=== PATIENT | female | born 1975 | race Caucasian/White ===

== ENCOUNTER 2024-11-20 21:40 | Observation (INO) ==
[2024-11-20 21:54] LABS: BASOPHILS % (AUTO) 0.5 %; EOSINOPHILS # (AUTO) 0.2 10^3/uL (0.0-0.7); EOSINOPHILS % (AUTO) 2.7 %; HCT - HEMATOCRIT 39.8 % (37.0-47.0); LYMPHOCYTES # (AUTO) 2.8 10^3/uL (1.5-3.5); LYMPHOCYTES % (AUTO) 38.8 %; MEAN CORPUSCULAR HEMOGLOBIN 34.2 pg (27.0-31.0); MEAN CORPUSCULAR HGB CONC 32.7 g/dL (32.0-36.0); MEAN CORPUSCULAR VOLUME 104.7 fL (81.0-99.0); MEAN PLATELET VOLUME 9.1 fL (7.9-10.8); MONOCYTES # (AUTO) 0.5 10^3/uL (0.0-1.0); MONOCYTES % (AUTO) 7.4 %; NEUTROPHILS # (AUTO) 3.7 10^3/uL (1.5-6.6); NEUTROPHILS % (AUTO) 50.3 %; PLT - PLATELET COUNT 275 10^3/uL (130-450); RED CELL DISTRIBUTION WIDTH 15.3 % (12.0-15.0); WHITE BLOOD COUNT 7.3 x10^3/uL (4.8-10.8)
[2024-11-20] MEDS ORDERED: ROCURONIUM 50 MG/5 ML VIAL ONE (21:58)
[2024-11-20] MEDS: ROCURONIUM 50 MG/5 ML VIAL IVP STA (22:00)
[2024-11-20 22:09] LABS: ACETAMINOPHEN 29.8 ug/mL; ALBUMIN 4.6 g/dL (3.2-5.5); ALBUMIN/GLOBULIN RATIO 1.7 (1.0-2.2); ALKALINE PHOSPHATASE 76 IU/L (42-121); ALT ALANINE AMINOTRANSFERASE 25 IU/L (10-60); AST ASPARTATE AMINOTRANSFERASE 34 IU/L (10-42); BILIRUBIN,TOTAL 0.3 mg/dL (0.2-1.0); BUN - BLOOD UREA NITROGEN 14 mg/dL (6-20); CALCIUM 9.5 mg/dL (8.5-10.3); CARBON DIOXIDE - CO2 23 mmol/L (21-32); CHLORIDE 104 mmol/L (101-111); CK- CREATINE KINASE 590 IU/L (30-223); CREATININE 0.7 mg/dL (0.6-1.3); ETOH - ETHANOL 353.1 mg/dL; GFR - MDRD 89 (>89); GLUCOSE 104 mg/dL (74-104); LIPASE 41 U/L (11-82); MAGNESIUM 2.1 mg/dL (1.7-2.3); POTASSIUM 3.7 mmol/L (3.5-4.5); SODIUM 140 mmol/L (135-145); TOTAL PROTEIN 7.3 g/dL (6.4-8.9)
--- NOTE | 2024-11-20 22:10 | ED Physician Documentation ---
History of Present Illness Stated complaint Stated Complaint: SI/OD Chief complaint Chief Complaint: Resp History obtained from History obtained from: EMS Additonal information Additional information: Patient is a 49-year-old female brought in by EMS. Unable to give any history. Reportedly she drank at least a box of wine if not more today and also took between 18 and 20 tablets of Tylenol PM. Reported ingestion was approximately 8:30 PM. Patient was talking when picked up by EMS but has now become unresponsive and hypoxic [place] Coma Scale Assess Eye opening: None Verbal response: Incomprehensible Motor response: Withdraws to Pain Total score: 7 Review of Systems Status of ROS: unobtainable due to medical condition Meds/Allgy Allergies Allergies Allergy/AdvReac Type Severity Reaction Status Date / Time Unable to Assess Allergy Verified 11/20/24 21:57 PFSH Active Problems All Active Problems (Updated 11/20/24 @ 22:53 by Paulo Rosa MD) Polysubstance overdose (Acute) Suicide attempt (Acute) Respiratory failure (Acute) Alcohol intoxication (Acute) Social History Social History Do you feel safe in your home environment?: Yes (unobtainable) Suffered physical, verbal, emotional, or financial abuse?: No (uobtainable) Exam Exam Vital Signs: Vital Signs x48h Temp Pulse Resp BP Pulse Ox 11/20/24 21:47 35.6 C L 104 H 6 L 91/63 74 L Constitutional Drowsy, minimally arousable to sternal rub HENMT normocephalic, head/scalp atraumatic and oropharynx normal Eyes Pinpoint pupils bilaterally Neck/C-Spine trachea midline Respiratory breath sounds equal bilaterally Decreased respiratory effort Cardiovascular normal heart rate noted and regular rhythm noted Gastrointestinal abdomen soft to palpation, nontender to palpation and nondistended Extremities normal to inspection and no deformity Neurology GCS calculation - Eye opening: None Verbal response: Incomprehensible Motor response: Withdraws to Pain [place] Coma Scale total score: 7 Skin skin color normal Results Vitals Vitals: Vital Signs - 24 hr 11/20/24 21:47 Temperature 35.6 C L Temperature Source Temporal Artery Scan Pulse Rate 104 H Respiratory Rate 6 L Blood Pressure 91/63 O2 Saturation 74 L O2 Source Room air Pain Intensity 0 Oxygen O2 Source Room air EKG (time done) 2148: EKG releavant findings:: EKG personally interpreted by author of this note. Relevant findings are: Rate: Other (96 sinus rhythm) Labs Labs: Laboratory Tests 11/20/24 21:49 WBC 7.3 RBC 3.80 L Hgb 13.0 Hct 39.8 MCV 104.7 H MCH 34.2 H MCHC 32.7 RDW 15.3 H Plt Count 275 MPV 9.1 Neut # (Auto) 3.7 Lymph # (Auto) 2.8 Crockett # (Auto) 0.5 Eos # (Auto) 0.2 Baso # (Auto) 0.0 Absolute Nucleated RBC 0.00 Nucleated RBC % 0.0 Sodium 140 Potassium 3.7 Chloride 104 Carbon Dioxide 23 Anion Gap 13.0 BUN 14 Creatinine 0.7 Estimated GFR (MDRD) 89 Glucose 104 Calcium 9.5 Magnesium 2.1 Total Bilirubin 0.3 AST 34 ALT 25 Alkaline Phosphatase 76 Total Creatine Kinase 590 H Total Protein 7.3 Albumin 4.6 Globulin 2.7 Albumin/Globulin Ratio 1.7 Lipase 41 TSH 1.04 Salicylates < 1.5 Acetaminophen 29.8 Ethyl Alcohol 353.1 Procedures Intubation - Major Provider: Emergency physician Medications: Rocuronium Blade: Glidescope Tube: Size-enter number (7.5), Cuffed and Marked at lips-enter cm (24) Route: Oral Confirmation: Direct visualization, Bilateral breath sounds, End tidal CO2, Pulse ox and Chest xray Complications: No compications (Endotracheal tube pull back 2 cm) PD Medical Decision Making ED course Complexity details: reviewed results, re-evaluated patient and considered differential ED course: 49-year-old female brought in by EMS after an intentional overdose on Tylenol PM and additional Benadryl. She became drowsy and unresponsive in the emergency department. Also drank boxed wine tonight. Shortly after arrival she was intubated. IV fluids given. NG tube placed, Kumar catheter placed. No ICU beds available here currently. Patient was signed out to Dr. Delgado at time of shift change, will look for an ICU bed versus allowing her to metabolize and plan on extubation in the morning. See her note for final disposition. This document was made in part using voice recognition software. While efforts are made to proofread this document, sound alike and grammatical errors may occur. Critical Care Critical Care Provided: Yes Time(min): 45 Time Includes: Direct patient care, Review records, Reassess patient, Document care and See progress note Data interpretation: See progress note Procedures included in critical care time: See progress note Procedures excluded from critical care time: Intubation and See progress note Discharge Plan Discharge Clinical Impression: Suicide attempt Alcohol intoxication Qualifiers: Complication of substance-induced condition: uncomplicated Qualified Code(s): F10.920 - Alcohol use, unspecified with intoxication, uncomplicated Respiratory failure Qualifiers: Chronicity: acute Respiratory failure complication: unspecified whether with hypoxia or hypercapnia Qualified Code(s): J96.00 - Acute respiratory failure, unspecified whether with hypoxia or hypercapnia Polysubstance overdose Qualifiers: Encounter type: initial encounter Injury intent: intentional self-harm Qualified Code(s): T50.902A - Poisoning by unspecified drugs, medicaments and biological substances, intentional self-harm, initial encounter Print Language: [place] Citizen Stand Alone Forms: PCP List
[2024-11-20 22:12] LABS: SALICYLATE < 1.5 mg/dL
[2024-11-20 22:22] LABS: THYROID STIMULATING HORMONE 1.04 uIU/mL (0.34-5.60)
[2024-11-20] MEDS: SODIUM CHLORIDE 0.9% 1,000 ML IV STA ×2 (22:43→22:48)
[2024-11-20] MEDS: PROPOFOL 1000 MG/100 ML 1,000 MG/100 ML BOTTLE IV STA (22:44)
[2024-11-20 23:10] LABS: BILIRUBIN,URINE NEGATIVE (NEGATIVE); GLUCOSE, URINE (UA) NEGATIVE (NEGATIVE); KETONES,URINE (UA) NEGATIVE (NEGATIVE); LEUKOCYTE ESTERASE, URINE NEGATIVE (NEGATIVE); NITRITE,URINE NEGATIVE (NEGATIVE); OCCULT BLOOD,URINE NEGATIVE (NEGATIVE); PROTEIN,URINE NEGATIVE (NEGATIVE); UROBILINOGEN,URINE 0.2 (NORMAL) E.U./dL (NORMAL)
[2024-11-20 23:14] LABS: CLARITY,URINE CLEAR (CLEAR)
[2024-11-20 23:37] LABS: AMPHETAMINE SCREEN,URINE NEGATIVE (NEGATIVE); BARBITURATE SCREEN,UR NEGATIVE (NEGATIVE); BENZODIAZEPINES SCREEN, URINE NEGATIVE (NEGATIVE); BUPRENORPHINE SCREEN, URINE NEGATIVE (NEGATIVE); COCAINE SCREEN URINE NEGATIVE (NEGATIVE); METHADONE SCREEN, URINE NEGATIVE (NEGATIVE); METHAMPHETAMINES SCREEN, URINE NEGATIVE (NEGATIVE); OPIATE SCREEN, URINE NEGATIVE (NEGATIVE); OXYCODONE SCREEN, URINE NEGATIVE (NEGATIVE); THC CANNABINOID SCREEN, URINE NEGATIVE (NEGATIVE); TRICYCLIC ANTIDEPRESSANT,URINE NEGATIVE (NEGATIVE)
[2024-11-20] MEDS: fentaNYL 2,500 MCG in SODIUM CHLORIDE 0.9% 200 ML IV STA (23:40)
--- NOTE | 2024-11-20 23:53 | XRAY Report ---
PROCEDURE: XR Chest 1V INDICATIONS: post intubation TECHNIQUE: One view of the chest was acquired. COMPARISON: None. FINDINGS: Surgical changes and devices: Endotracheal tube and nasogastric tubes are in good position. There are several overlying monitoring wires. Surgical clips present in the left upper quadrant of the abdomen. Lungs and pleura: Strandy parenchymal opacity in the left lung base. No significant effusion or pneumothorax. Mediastinum: Mediastinal contours appear normal. Heart size is normal. Bones and chest wall: No suspicious bony lesions. Overlying soft tissues appear unremarkable. IMPRESSION: Adequate placement of support tubes. Strandy left lung base opacity, probably atelectasis, cannot exclude aspiration. Reviewed by: Alvina Miller MD on 11/20/2024 11:51 PM PDT Approved by: Alvina Miller MD on 11/20/2024 11:51 PM PDT Station ID: [id number]
[2024-11-21 01:09] LABS: ABG PH 7.41 (7.35-7.45)
[2024-11-21 01:10] LABS: ABG PCO2 31 mmHg (34-45)
[2024-11-21 01:11] LABS: ABG BASE EXCESS -5.4 mmol/L (-2.0-3.0); ABG HCO3 19.6 mmol/L (22.0-26.0); ABG MODE OF VENTILATION ASSIST/CONTROL; ABG OXYGEN SATURATION 100 % (95-98); ABG PO2 496 mmHg (83-108); ABG RESPIRATORY RATE 4 b/min; ABG TCO2 20.5 mmol/L (21.0-29.0); ALLEN TEST POSITIVE
--- NOTE | 2024-11-21 02:44 | ED Physician Documentation ---
ED Addendum Addendum Addendum: Patient endorsed to me at 11pm shift change. currently intubated on versed/fentanyl for sedation. Her 4 hour tylenol level was therapeutic as was 8 hour tylenol. no icu beds overnight but one will open up in am. Plan to endorse to incoming daytime ED MD at 7am shift change. Discharge Plan Discharge Clinical Impression: Suicide attempt Alcohol intoxication Qualifiers: Complication of substance-induced condition: uncomplicated Qualified Code(s): F10.920 - Alcohol use, unspecified with intoxication, uncomplicated Respiratory failure Qualifiers: Chronicity: acute Respiratory failure complication: unspecified whether with hypoxia or hypercapnia Qualified Code(s): J96.00 - Acute respiratory failure, unspecified whether with hypoxia or hypercapnia Polysubstance overdose Qualifiers: Encounter type: initial encounter Injury intent: intentional self-harm Qualified Code(s): T50.902A - Poisoning by unspecified drugs, medicaments and biological substances, intentional self-harm, initial encounter Print Language: Somali Stand Alone Forms: PCP List
[2024-11-21] MEDS: VECURONIUM 10 MG VIAL IVP STA (02:49)
[2024-11-21] MEDS ORDERED: PROPOFOL 1000 MG/100 ML 1,000 MG/100 ML BOTTLE IV ONE (04:36)
--- NOTE | 2024-11-21 07:18 | ED Physician Documentation ---
ED Addendum Addendum Addendum: She had been holding in the emergency department as ICU staffing precluded her from being admitted overnight. It was passed down to me that an ICU bed would open up at 7 AM and I spoke with Dr. Regan for admission at 7:18 AM. Discharge Plan Discharge Patient Disposition: [facility] DC/Xfer Condition: Critical Clinical Impression: Suicide attempt Alcohol intoxication Qualifiers: Complication of substance-induced condition: uncomplicated Qualified Code(s): F10.920 - Alcohol use, unspecified with intoxication, uncomplicated Respiratory failure Qualifiers: Chronicity: acute Respiratory failure complication: unspecified whether with hypoxia or hypercapnia Qualified Code(s): J96.00 - Acute respiratory failure, unspecified whether with hypoxia or hypercapnia Polysubstance overdose Qualifiers: Encounter type: initial encounter Injury intent: intentional self-harm Qualified Code(s): T50.902A - Poisoning by unspecified drugs, medicaments and biological substances, intentional self-harm, initial encounter Interventions: ED Admission Assessment Last Done: 11/21/24 08:06
[2024-11-21] MEDS ORDERED: ALBUTEROL NEB 2.5 MG/3 ML INH PRN (07:50)
[2024-11-21] MEDS ORDERED: SODIUM CHLORIDE FLUSH 0.9% 10 ML SYRINGE IVP PRN (07:50)
[2024-11-21] MEDS ORDERED: ONDANSETRON 4 MG/2 ML VIAL IVP PRN (07:50)
--- NOTE | 2024-11-21 08:05 | HISTORY & PHYSICAL EXAMINATION ---
Chief Complaint Chief Complaint Chief Complaint: Patient intubated on arrival History of Present Illness Admitted From Admitted From:: Emergency department History Obtained From Records Reviewed: ED History obtained from: Dr Escobar, Chart Review Exam Limitations: Pt intubated, sedated History of Present Illness HPI Comment/Other: Patient is a 49-year-old female who was brought to the ED due to lack of responsiveness, intubated in the field. She had reportedly drank a box of wine and taken An estimated 18 to 20 tablets of Tylenol PM. This was an apparent suicide attempt. History is provided by chart review and ED attending as patient is currently intubated and unable to communicate. Per Dr. Suazo in the ED, poison control was contacted by previous ED attendings and they did not recommend acetylcysteine given that the patient had normal labs. Remainder of ED workup was relatively unremarkable. ICU admission is requested for further management of respiratory failure and subsequent treatment for depression with suicide attempt. Meds/Allgy Allergies Allergies Allergy/AdvReac Type Severity Reaction Status Date / Time Unable to Assess Allergy Verified 11/20/24 21:57 PFSH Active Problems All Active Problems (Updated 11/20/24 @ 22:53 by Paulo Rosa MD) Polysubstance overdose (Acute) Suicide attempt (Acute) Respiratory failure (Acute) Alcohol intoxication (Acute) Social History Social History Smoking Status: Unknown if ever smoked Relationship: Child Do you feel safe in your home environment?: Yes (unobtainable) Suffered physical, verbal, emotional, or financial abuse?: No (uobtainable) POLST Patient has POLST: No Review of Systems Status of ROS: unobtainable due to endotracheal tube Exam Exam Vital Signs: Vital Signs x48h Temp Pulse Resp BP Pulse Ox 11/21/24 07:30 36.5 C 77 14 119/85 97 11/21/24 07:00 36.4 C L 79 14 129/88 99 11/21/24 06:30 36.4 C L 84 14 138/88 H 98 11/21/24 06:23 79 11/21/24 06:00 36.5 C 79 14 108/75 95 11/21/24 05:30 36.5 C 77 14 108/75 95 11/21/24 05:00 36.6 C 79 14 126/90 96 11/21/24 04:45 80 11/21/24 04:30 36.2 C L 85 14 92/68 95 11/21/24 04:00 35.8 C L 72 14 89/64 L 95 11/21/24 03:30 35.6 C L 72 14 85/61 L 95 11/21/24 03:06 35.6 C L 73 14 84/60 L 95 11/21/24 02:36 35 C L 70 14 88/63 L 96 11/21/24 02:30 75 11/21/24 02:00 35 C L 69 14 91/66 96 11/21/24 01:54 35.0 C L 74 14 91/66 98 11/21/24 01:43 35 C L 76 14 133/89 H 98 11/21/24 01:29 35.0 C L 94 20 126/89 95 11/21/24 01:22 67 14 83/57 L 97 11/21/24 01:22 70 11/21/24 01:18 67 14 79/57 L 96 11/21/24 01:16 67 14 78/53 L 96 11/21/24 01:14 67 14 79/53 L 96 11/21/24 01:13 35.0 C L 67 14 78/53 L 96 11/21/24 01:12 35.0 C L 67 14 79/56 L 96 11/21/24 01:08 35.0 C L 68 14 81/55 L 96 11/21/24 01:01 35.0 C L 69 14 84/58 L 96 11/21/24 01:00 35.0 C L 70 14 80/56 L 96 11/21/24 00:45 34.9 C L 69 14 96 11/21/24 00:30 34.8 C L 70 14 98 11/21/24 00:29 34.8 C L 70 14 92/66 98 11/21/24 00:15 34.8 C L 72 14 100 11/21/24 00:00 83 14 100 Constitutional Drowsy, minimally arousable to sternal rub HENMT normocephalic, head/scalp atraumatic and oropharynx normal Eyes Pinpoint pupils bilaterally Neck/C-Spine trachea midline Respiratory breath sounds equal bilaterally Decreased respiratory effort Cardiovascular normal heart rate noted and regular rhythm noted Gastrointestinal abdomen soft to palpation, nontender to palpation and nondistended Extremities normal to inspection and no deformity Neurology GCS calculation - Eye opening: None Verbal response: Incomprehensible Motor response: Withdraws to Pain [place] Coma Scale total score: 7 Skin skin color normal Conclusion/Plan Problem List (1) Suicide attempt: (2) Respiratory failure: Qualifiers: Chronicity: acute Respiratory failure complication: unspecified whether with hypoxia or hypercapnia Qualified Code(s): J96.00 - Acute respiratory failure, unspecified whether with hypoxia or hypercapnia (3) Alcohol intoxication: Qualifiers: Complication of substance-induced condition: uncomplicated Qualified Code(s): F10.920 - Alcohol use, unspecified with intoxication, uncomplicated (4) Polysubstance overdose: Qualifiers: Encounter type: initial encounter Injury intent: intentional self-harm Qualified Code(s): T50.902A - Poisoning by unspecified drugs, medicaments and biological substances, intentional self-harm, initial encounter Plan # Alcohol intoxication # Suicide attempt with Tylenol overdose #Polysubstance O/D #Acute respiratory failure with hypoxia * Patient arrived from the field intubated after she was initially awake but not verbally communicative in the field * Labs in the ER are reassuring * Patient doing well on the vent, sedated with propofol * Vital stable * Poison control does not recommend acetylcysteine * Place patient in ICU * Wean vent as able * Once patient is awake and communicative, will perform suicide assessment with social work and likely will require psych consult * Monitor for w/d sx when pt awakens, though not likely to w/d soon d/t recent etoh ingestion * Continue ICU care Lab Results 11/20/24 21:49 11/20/24 21:49 Core Measures Anticipated LOS I expect patient to be DC'd or transferred within 96 hours.: Yes
[2024-11-21] MEDS: SODIUM CHLORIDE 0.9% 1,000 ML IV SCH (08:38)
[2024-11-21] MEDS: FAMOTIDINE 20 MG/2 ML VIAL IVP SCH (08:39)
[2024-11-21] MEDS: ENOXAPARIN 40 MG/0.4 ML SYRINGE SUBQ SCH (08:39)
[2024-11-21] MEDS: SODIUM CHLORIDE FLUSH 0.9% 10 ML SYRINGE IVP SCH (11:25)
[2024-11-21] MEDS: BENZOCAINE/MENTHOL LOZENGE MM PRN (12:33)
--- NOTE | 2024-11-21 13:49 | PHARMACY PROGRESS NOTE ---
Best Possible Medication History Admit Date and Time: 11/21/24 143511 Home Medications Medication Instructions Recorded Confirmed Type escitalopram oxalate 20 mg tablet 20 mg PO QAM 5 11/21/24 History estradiol 1 mg/gram (0.1 %) 1 packet topical QPM 11/2111/21/24 History transdermal gel packet lisinopril 30 mg tablet 30 mg PO QAM 11/21/24 History multivitamin 1 tab PO DAILY 11/21/2411/09 History phentermine 37.5 mg tablet 37.5 mg PO QAM 11/21/24 History progesterone micronized 100 mg 100 mg PO QPM 11/21/24 11/21/24 History capsule Processed by: Pharmacy (pharmacy studentDorina) Medications reviewed in ED?: No Medication History completed: Yes Patient Interview: Completed (Patient reports she has not been taking her medications for months due to cost) Secondary Source(s): Insurance records [facility] Statement: As the person ultimately responsible for medication therapy, providers are able to order a medication from an existing home medication list in [facility] via the "Reconcile Routine" prior to Confirmation of that medication by ground support equipment fitter. Such practice is discouraged except when the physician, in their clinical judgment, deems that a medical need exists for a medication without regard to previous use.
[2024-11-21] MEDS ORDERED: LORazepam 2 MG/ML VIAL IVP PRN (16:53)
[2024-11-21] MEDS ORDERED: diazePAM INJ 5 MG/ML SYRINGE IVP PRN (16:53)
[2024-11-21 17:30] LABS: ALBUMIN 3.9 g/dL (3.2-5.5); ALBUMIN/GLOBULIN RATIO 1.8 (1.0-2.2); BILIRUBIN,TOTAL 0.5 mg/dL (0.2-1.0); CALCIUM 8.1 mg/dL (8.5-10.3); CREATININE 0.8 mg/dL (0.6-1.3); POTASSIUM 4.2 mmol/L (3.5-4.5); TOTAL PROTEIN 6.1 g/dL (6.4-8.9)
[2024-11-21] MEDS: diazePAM 5 MG TABLET PO PRN (17:36)
[2024-11-21] MEDS: ACETAMINOPHEN 325 MG TABLET PO PRN (17:57)
[2024-11-21] MEDS: lisinopriL 20 MG TABLET PO SCH (18:05)
[2024-11-21] MEDS: PROPOFOL 1000 MG/100 ML 1,000 MG/100 ML BOTTLE IV SCH (20:53)
[2024-11-22 04:34] LABS: BASOPHILS % (AUTO) 0.4 %; EOSINOPHILS # (AUTO) 0.3 10^3/uL (0.0-0.7); EOSINOPHILS % (AUTO) 4.8 %; HCT - HEMATOCRIT 36.2 % (37.0-47.0); HGB - HEMOGLOBIN 11.9 g/dL (12.0-16.0); LYMPHOCYTES # (AUTO) 1.9 10^3/uL (1.5-3.5); LYMPHOCYTES % (AUTO) 29.1 %; MEAN CORPUSCULAR HEMOGLOBIN 34.3 pg (27.0-31.0); MEAN CORPUSCULAR HGB CONC 32.9 g/dL (32.0-36.0); MEAN CORPUSCULAR VOLUME 104.3 fL (81.0-99.0); MEAN PLATELET VOLUME 8.9 fL (7.9-10.8); MONOCYTES # (AUTO) 0.4 10^3/uL (0.0-1.0); MONOCYTES % (AUTO) 6.6 %; NEUTROPHILS # (AUTO) 3.9 10^3/uL (1.5-6.6); PLT - PLATELET COUNT 222 10^3/uL (130-450); RED BLOOD COUNT 3.47 10^6/uL (4.20-5.40); RED CELL DISTRIBUTION WIDTH 15.5 % (12.0-15.0); WHITE BLOOD COUNT 6.7 x10^3/uL (4.8-10.8)
[2024-11-22 04:54] LABS: ALBUMIN 3.6 g/dL (3.2-5.5); ALBUMIN/GLOBULIN RATIO 1.7 (1.0-2.2); BILIRUBIN,TOTAL 0.5 mg/dL (0.2-1.0); CALCIUM 8.4 mg/dL (8.5-10.3); CREATININE 0.6 mg/dL (0.6-1.3); POTASSIUM 3.7 mmol/L (3.5-4.5); TOTAL PROTEIN 5.7 g/dL (6.4-8.9)
[2024-11-22] MEDS: PRENATAL VITAMIN TABLET PO SCH (08:22)
[2024-11-22] MEDS: THIAMINE 100 MG TABLET PO SCH (08:27)
[2024-11-22] MEDS: ESCITALOPRAM 10 MG TABLET PO SCH (08:48)
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
[2024-11-22 16:04] VITALS: TEMP 98.6
[2024-11-22 16:49] VITALS: O2SAT 97
[2024-11-22 17:06] VITALS: BP 126/75
== END 2024-11-22 17:12 ==
LOC: ICU 21:40 → ED 21:40 → ICU 11-21 08:06
PROVIDERS: ADMIT Family Medicine Sports Medicine; ATTEND Family Medicine Sports Medicine
DX: R40.4 Transient alteration of awareness; T39.1X2A Poisoning by 4-Aminophenol derivatives, intentional self-harm, initial encounter; I95.9 Hypotension, unspecified; F32.A Depression, unspecified; R00.0 Tachycardia, unspecified; R45.851 Suicidal ideations; F10.229 Alcohol dependence with intoxication, unspecified; J96.01 Acute respiratory failure with hypoxia; T45.0X2A Poisoning by antiallergic and antiemetic drugs, intentional self-harm, initial encounter